=== PATIENT | female | born 1965 | race Two or more races ===

== ENCOUNTER 2024-08-03 09:37 | Outpatient (RCR) | payer MEDICAID, SELFPAY ==
--- NOTE | 2024-08-03 10:55 | CTCCONSULT_ITS ---
[facility] [address] [place], [place] [address] Consultation Note Date: 08/03/2024 MR#: [id number] Name: NIKOS EDMONDSON : 1965 Dx: C50.412 Malignant neoplasm of upper-outer quadrant of left female breast Referring physician. Christophe Moore MD Reason for consultation. Patient with [id number] left breast CA status post bilateral mastectomy left axillary dissection status post chemo referred for radiation therapy. History of Present Illness: Patient is a 58-year-old lady who felt a large left breast lump and underwent left breast biopsy 12/01/2023. Ultrasound showed left breast nodule as well as left axillary nodule. Pathology revealed invasive carcinoma 9 of 9 in the breast and 8 of 9 in left axillary area. HER2/giorgi negative ER/NV positive. Patient also noted to have inflammatory type of picture with edema peau d'orange dimpling erythema. The mass was 8 cm in the upper outer quadrant. Patient started dose dense AC-T chemotherapy on 01/01/2024. Last dose April 18, 2023. PET scan 05/04/2024 showed significant decrease, with no apparent distant mets according to patient. Patient underwent bilateral mastectomy and left axilla lymph node dissection 05/24 2024. [facility]. Left breast revealed 5 cm greatest tumor dimension 9 of 9 Jeanerette score Margins were negative. 30 of 31 lymph nodes examined revealed mets. Right breast mastectomy no evidence of neoplasia. Patient is now taking Verzenio and fulvestrant, now referred for radiation therapy portion of the treatment. Past Medical History: History of tubal ligation hypertension diabetes Family history. Mother 3 aunts 2 cousins with history of bladder cancer. Meds. Colace tramadol acetaminophen gabapentin albuterol loratadine Ozempic lisinopril social History: Denies smoking drinking Review of Systems: Has a leak urine hayfever headaches nausea nocturia Physical Exam: General: Adequate nourished appearing lady no acute distress HEENT: Atraumatic no cephalic extraocular was intact no oral lesions no cervical or supraclavicular adenopathy CV: Left chest wall breast surgically absent no sign of recurrence. ABD: Soft no organomegaly or tenderness EXT: No cyanosis clubbing or edema Assessment:1. [id number] left breast CA status post mastectomy axillary dissection 05/25/2024 Hattie Cooley. ER/NV positive HER2 negative. 2. Completed neoadjuvant chemo dose dense ACT currently on Verzenio fulvestrant 3 Radiation therapy to the left chest wall regional nodes 4500 to 5040 cGy with boost to the scar will be planned for patient. 6 to 7 weeks. 4. Side effects explained. Thank you very much for allowing me to evaluate and manage this patient. Cc : Vin Moore MD [place] Electronically signed by: William Moreno MD, DABR 08/03/2024 10:53 AM
--- NOTE | 2024-08-03 10:56 | CTCTXPLN_ITS ---
[facility] [address] [place], [place] [address] Physician Clinical Treatment Planning Note Date of Service: 08/03/2024 Name: NIKOS TOUREHIREN ParekhB.: 1965 The patient has agreed to proceed with Radiation therapy. Tests and supporting medical records were interpreted to assist in defining the tumor location and extent of disease. Further imaging will be necessary to contour and delineate the volume to which the XRT will be provided. A. Treatment Intent: Curative B. Modality: 6 MV C. Requested Technique: 3D D. Treatment Site: Left chest wall regional nodes E. Critical structures to be contoured on plan: F. In order to accomplish this plan, I am ordering/Prescribing the followin. Simulations (s) will be performed to accomplish a reproducible treatment position, to determine optimal treatment portals/beam arrangements, to design beam modifying devices and verify treatment portals on patient prior to the commencement of Radiation Therapy. Left chest wall 2. Devices; for immobilization and beam shaping: Vac-Manish 3. CT Guidance for placement of XRT carrasco Scan area: 4. Portal images Frequency: 5. Invivo transit dose measurement once per week on all VMAT patients. 6. Special Physics Consult Requested for: 7. Other requests: G. Dose Objectives: Curative Electronically signed by: William Moreno M.D. 08/03/2024 10:54 AM
--- NOTE | 2024-08-03 11:00 | CTCTXPLNST_ITS ---
Radiation Oncology Treatment Planning Sheet Name: NIKOS EDMONDSON MR#: [id number] : 1965 Dx: C50.412 Malignant neoplasm of upper-outer quadrant of left female breast Date of Service: 08/03/2024 Account #: ?? Pt Treatment Intent: curative palliative other: Stage: Procedure CPT # Ordered Spec. Procedure 39006 1 Radford Complex (set-up) 30432 L CW/SC/PAB E BOOST 2 Radford Simple 68170 1 IMRT Plan 52040 MLC Devices VMAT 45924 Radford 3 D 78404 1 TRTMT dev Complex 21935 [place]ok/2 pedersen/SCA/PAB/E boost 6 TRTMT dev simple 37620 3 mm bolus 1 Basic Shaq 51733 7 Special Dosimetry 31368 Spec Physics 05438 Port Films 54965 5 SRS Cranial/1FX 46058 SBR 5 FX or Less /ex: 5 = 5 fx 83483 IMRT Simple 44579 IMRT Complex 43285 IGRT 68867 Rad del com 6- 09884 Rad del com 12-28 72614 6300 35 Cont Med Physics 69816 7 Treatment Planning 80329 1 Rad del com 20 mev 79568 Rad del inter 07-19 56796 Rad del inter 12-28 01701 Rad del simple 07-19 17329 Rad del simple 12-28 96640 Special Port Plan 62177 TRTMT dev inter 04052 Isodose Complex 21587 Isodose simple 93661 Resp Motion Mgmt Simulation 17278 Placement of Fiducial Markers 88108 Electronically Signed By: William Moreno MD, MAE 08/03/2024 10:57 AM
== END 2024-08-08 23:59 | disposition home or self-care (01) ==
LOC: SCTC 09:37
PROVIDERS: PCP Family Medicine; Referring Provider Internal Medicine Hematology & Oncology; Visit Provider Radiology Therapeutic Radiology
DX: C50.412 Malignant neoplasm of upper-outer quadrant of left female breast (principal); Z17.0 Estrogen receptor positive status [ER+]; Z17.21 Progesterone receptor positive status; Z17.32 Human epidermal growth factor receptor 2 negative status; Z90.13 Acquired absence of bilateral breasts and nipples; Z92.21 Personal history of antineoplastic chemotherapy
CPT/HCPCS: 77470; 99213; G0463

== ENCOUNTER 2024-09-01 13:26 | Outpatient (RCR) | payer MEDICAID, SELFPAY | END 2024-09-08 23:59 | disposition home or self-care (01) | LOC: SCTC 13:26 | PROVIDERS: PCP Family Medicine; Referring Provider Family Medicine; Visit Provider Radiology Therapeutic Radiology | DX: C50.412 Malignant neoplasm of upper-outer quadrant of left female breast (principal); Z17.0 Estrogen receptor positive status [ER+]; Z17.21 Progesterone receptor positive status; Z17.32 Human epidermal growth factor receptor 2 negative status; Z90.12 Acquired absence of left breast and nipple | CPT/HCPCS: 77014; 77290; 77295; 77300; 77334 ==

== ENCOUNTER 2024-10-05 12:54 | Outpatient (RCR) | payer MEDICAID, SELFPAY ==
--- NOTE | 2024-09-12 15:31 | CTCSNOTE_ITS ---
[facility] [address] [place], [place] [address] Simple Simulation Note Date: 09/12/2024 MR#: [id number] Name: NIKOS EDMONDSON : 1965 Port was taken and the field size location and blocks were checked. (A) The port was noted to be in ideal position along with its blocks. ( Electronically signed by: William Moreno MD, DABR 09/12/2024 3:29 PM
== END 2024-10-09 23:59 | disposition home or self-care (01) ==
LOC: SCTC 12:54
PROVIDERS: PCP Family Medicine; Referring Provider Family Medicine; Visit Provider Radiology Therapeutic Radiology
DX: Z51.0 Encounter for antineoplastic radiation therapy (principal); C50.412 Malignant neoplasm of upper-outer quadrant of left female breast; Z17.0 Estrogen receptor positive status [ER+]; Z17.21 Progesterone receptor positive status; Z17.32 Human epidermal growth factor receptor 2 negative status; Z90.13 Acquired absence of bilateral breasts and nipples; L59.8 Other specified disorders of the skin and subcutaneous tissue related to radiation; Y84.2 Radiological procedure and radiotherapy as the cause of abnormal reaction of the patient, or of later complication, without mention of misadventure at the time of the procedure
CPT/HCPCS: 77280; 77336; 77412; 77417

== ENCOUNTER 2024-11-08 13:11 | Outpatient (RCR) | payer MEDICAID, SELFPAY ==
--- NOTE | 2024-10-24 13:41 | CTCTRTNOTE_ITS ---
[facility] [address] [place], [place] [address] Weekly Management Date: 10/24/2024 ?? Name: NIKOS EDMONDSON D.O.B.: 1965 A. Patient is currently at 3060 cGy. On rest last 2 weeks now well-healed. B. Fractured left lower extremity wearing a boot seeing Ortho C. Resume radiation therapy. With bolus removed. Electronically signed by: William Moreno M.D. 10/24/2024 1:39 PM
== END 2024-11-08 23:59 | disposition home or self-care (01) ==
LOC: SCTC 13:11
PROVIDERS: PCP Family Medicine; Referring Provider Family Medicine; Visit Provider Radiology Therapeutic Radiology
DX: Z51.0 Encounter for antineoplastic radiation therapy (principal); C50.412 Malignant neoplasm of upper-outer quadrant of left female breast; C77.3 Secondary and unspecified malignant neoplasm of axilla and upper limb lymph nodes; Z17.0 Estrogen receptor positive status [ER+]; Z17.21 Progesterone receptor positive status; Z17.32 Human epidermal growth factor receptor 2 negative status; Z90.13 Acquired absence of bilateral breasts and nipples; Z92.21 Personal history of antineoplastic chemotherapy
CPT/HCPCS: 77290; 77300; 77332; 77336; 77412; 77417

== ENCOUNTER 2024-11-30 10:09 | Outpatient (RCR) | payer MEDICAID, SELFPAY | END 2024-12-09 23:59 | disposition home or self-care (01) | LOC: SCTC 10:09 | PROVIDERS: PCP Family Medicine; Referring Provider Family Medicine; Visit Provider Radiology Therapeutic Radiology | DX: Z51.0 Encounter for antineoplastic radiation therapy (principal); C50.412 Malignant neoplasm of upper-outer quadrant of left female breast; Z17.0 Estrogen receptor positive status [ER+]; Z17.21 Progesterone receptor positive status; Z17.32 Human epidermal growth factor receptor 2 negative status; L59.9 Disorder of the skin and subcutaneous tissue related to radiation, unspecified; Y84.2 Radiological procedure and radiotherapy as the cause of abnormal reaction of the patient, or of later complication, without mention of misadventure at the time of the procedure | CPT/HCPCS: 77336; 77412; 99212; G0463 ==